=== PATIENT | male | born 1965 | race Caucasian/White ===

== ENCOUNTER 2020-05-22 17:24 | Emergency (ER) | payer OTHER ==
[~2020-05-22 17:24] MED LIST: ADULT LOW DOSE81 MG PO; ASPIRIN EC81 MG PO; ASPIRIN81 MG PO; ATORVASTATIN CA20 MG PO; BENADRYL 50MG C50 MG PO; BRILINTA90 MG PO; HABITROL 21 MG P1 EA TOP; LIPITOR TAB 2020 MG PO; LIPITOR40 MG PO; LOPRESSOR 50 MG50 MG PO; NITROSTAT0.4 MG PO; NITROSTAT0.4 MG SL; NORVASC 5 MG TAB5 MG PO; OMNICEF 300 MG300 MG PO; PREDNISONE 50 M50 MG PO; PRINIVIL20 MG PO; PROTONIX40 MG PO; TOPROL XL 50 MG50 MG PO; ZANTAC150 MG PO; ZESTRIL/PRINIVI10 MG PO; ZESTRIL10 MG PO
[2020-05-22 20:28] LABS: HEMOGLOBIN 16.4 gm/dl (14.0-17.5); RED BLOOD COUNT 5.1 M/UL (4.20-5.50); WHITE BLOOD COUNT 9.2 K/UL (4.5-11.0)
[2020-05-22 20:57] LABS: BUN/CREATININE RATIO 30 (0-10)
[2020-05-22] MEDS ORDERED: GLUCOPHAGE500 MG PO (21:38)
== END 2020-05-23 00:31 | disposition home or self-care (01) ==
LOC: ER1 17:24
PROVIDERS: Emergency Medicine
DX: E11.9 Type 2 diabetes mellitus without complications (principal); I10 Essential (primary) hypertension; F17.200 Nicotine dependence, unspecified, uncomplicated; Z95.810 Presence of automatic (implantable) cardiac defibrillator
CPT/HCPCS: 70450; 71045; 80053; 82009; 82550; 82553; 82962; 83874; 84484; 85025; 93005; 99285

== ENCOUNTER 2020-07-08 17:59 | Emergency (ER) | payer OTHER ==
[~2020-07-08 17:59] MED LIST changes: +GLUCOPHAGE500 MG PO
[2020-07-08 19:10] LABS: HEMOGLOBIN 15.6 gm/dl (14.0-17.5); RED BLOOD COUNT 4.87 M/UL (4.20-5.50); WHITE BLOOD COUNT 6.4 K/UL (4.5-11.0)
[2020-07-08 19:32] LABS: BUN/CREATININE RATIO 11 (0-10)
[2020-07-08] MEDS ORDERED: ATROVENT-HFA12.9 GM INH (21:06)
== END 2020-07-08 22:27 | disposition home or self-care (01) ==
LOC: ER1 17:59
PROVIDERS: Physician Assistant Medical
DX: U07.1 COVID-19 (principal); I10 Essential (primary) hypertension; I25.119 Atherosclerotic heart disease of native coronary artery with unspecified angina pectoris; I25.2 Old myocardial infarction; F17.210 Nicotine dependence, cigarettes, uncomplicated; E11.9 Type 2 diabetes mellitus without complications
CPT/HCPCS: 0240U; 71045; 80053; 83880; 84484; 85025; 93005; 99284; M0239

== ENCOUNTER → 2021-12-02 | Outpatient (CLI) | payer MEDICARE, OTHER ==
[~2021-12-02] MED LIST changes: +ATROVENT-HFA12.9 GM INH
== END ==
LOC: US 09:30
DX: D69.6 Thrombocytopenia, unspecified (principal); K76.0 Fatty (change of) liver, not elsewhere classified; R16.1 Splenomegaly, not elsewhere classified; N28.9 Disorder of kidney and ureter, unspecified
CPT/HCPCS: 76705